=== PATIENT | male | born 1990 | race Caucasian/White ===

== ENCOUNTER 2018-01-24 19:41 | Emergency (ER) | payer BC ==
[~2018-01-24] VITALS: Ht 175.3 cm; Wt 86.2 kg
[2018-01-24] MEDS ORDERED: CLEOCIN HCL300 MG PO (22:15)
[2018-01-24] MEDS ORDERED: INTESTINEX680 M1 PO (22:15)
== END 2018-01-24 23:27 | disposition home or self-care (01) ==
LOC: ER 19:41
DX: J35.01 Chronic tonsillitis (principal)